=== PATIENT | male | born 1955 | race Caucasian/White ===

== ENCOUNTER 2017-07-14 04:10 | Emergency (ER) | payer OTHER ==
[~2017-07-14] VITALS: Ht 188 cm; Wt 122.5 kg
[~2017-07-14 04:10] MED LIST: ASPI81CH43; ATOR80TA; BECL80AE9; CYCL10TA3; GLIP10TA82; INSUINJ; INSULIN NPH; LORA-205; PERCOT; POTA10TA75; PROAIR; QUET100T38
[2017-07-14] MEDS ORDERED: SODIUM CHLORIDE 0.9% 1,000 ML IV ONE (04:26)
[2017-07-14 06:10] LABS: Basophils # (auto) 0 uL; Basophils % (auto) 0.4 % (0.0-2.0); Eosinophils # (auto) 0.2 uL; Eosinophils % (auto) 1.7 % (0.0-7.0); Hematocrit 38.4 % (41.0-53.0); Hemoglobin 12.6 g/dL (13.5-17.5); Lymphocytes # (auto) 1.8 uL; Lymphocytes % (auto) 19.7 % (10.0-50.0); Mean Corpuscular Hgb Conc. 32.8 g/dL (32.0-36.0); Mean Corpuscular Volume 76.3 fL (80.0-100.0); Mean Platelet Volume 7.8 fL (6.9-10.8); Monocytes # (auto) 0.8 uL; Monocytes % (auto) 8.7 % (0.0-12.0); Neutrophils # (auto) 6.3 uL; Neutrophils % (auto) 69.5 % (37.0-80.0); Nucleated Red Blood Cells % 0.1 %; Platelet Count (auto) 246 10^3/uL (140-450); Red Cell Distribution Width 19.2 % (11.8-14.3)
[2017-07-14 06:13] LABS: INR 1.02 (0.9-1.15); Partial Thromboplastin Time 28.2 sec (22.64-33.71); Prothrombin Time 11.1 sec (9.37-12.3)
[2017-07-14 06:26] LABS: Potassium 3.4 mmol/L (3.5-5.1)
[2017-07-14 06:32] LABS: Albumin 3.1 g/dL (3.4-5.0); BUN/Creatinine Ratio 19.8
[2017-07-14 06:36] LABS: Bilirubin, Total 0.3 mg/dL (0.2-1.0); Total Protein 7.3 g/dL (6.4-8.2)
[2017-07-14 08:41] LABS: Urine Bilirubin Negative (Negative); Urine Blood Negative /uL (Negative); Urine Color Yellow (Yellow); Urine Glucose Normal (Normal); Urine Ketone Negative (Negative); Urine Nitrite Negative (Negative); Urine RBC 1 /hpf (0 - 3); Urine Squamous Epithelial Cell FEW /hpf (<5); Urine Urobilinogen Normal (Negative); Urine pH 5.5 (5.0-8.0)
[2017-07-14] MEDS ORDERED: LEVOFLOXACIN 500MG 100 ML IV ONE (11:45)
[2017-07-14 14:23] VITALS: BP 126/74
== END 2017-07-14 14:33 | disposition short-term general hospital (02) ==
LOC: EDBD 04:10 → ER 04:13
DX: S40.011A Contusion of right shoulder, initial encounter (principal); N39.0 Urinary tract infection, site not specified; R55 Syncope and collapse; E66.01 Morbid (severe) obesity due to excess calories; S46.911A Strain of unspecified muscle, fascia and tendon at shoulder and upper arm level, right arm, initial encounter; E11.9 Type 2 diabetes mellitus without complications; E78.5 Hyperlipidemia, unspecified; J44.9 Chronic obstructive pulmonary disease, unspecified; F17.210 Nicotine dependence, cigarettes, uncomplicated; Z86.73 Personal history of transient ischemic attack (TIA), and cerebral infarction without residual deficits; Z95.1 Presence of aortocoronary bypass graft; Z79.899 Other long term (current) drug therapy; Z79.4 Long term (current) use of insulin; Z88.0 Allergy status to penicillin; Z88.6 Allergy status to analgesic agent; Z88.8 Allergy status to other drugs, medicaments and biological substances
CPT/HCPCS: 36415; 70450; 71010; 73030; 80053; 81001; 84484; 85025; 85610; 85730; 96361; 96365; 99285; J1956; 93005

== ENCOUNTER 2017-09-08 04:34 | Emergency (ER) | payer OTHER ==
[~2017-09-08] VITALS: Ht 182.9 cm; Wt 122.5 kg
[2017-09-08 05:54] LABS: Basophils # (auto) 0 uL; Eosinophils # (auto) 0.1 uL; Monocytes # (auto) 0.8 uL
[2017-09-08 05:56] LABS: Basophils % (auto) 0.5 % (0.0-2.0); Eosinophils % (auto) 0.7 % (0.0-7.0); Hematocrit 40.6 % (41.0-53.0); Hemoglobin 13.8 g/dL (13.5-17.5); Lymphocytes % (auto) 12.4 % (10.0-50.0); Mean Corpuscular Hemoglobin 26.6 pg (28.0-32.0); Mean Corpuscular Hgb Conc. 33.9 g/dL (32.0-36.0); Mean Corpuscular Volume 78.6 fL (80.0-100.0); Monocytes % (auto) 10.5 % (0.0-12.0); Neutrophils % (auto) 75.9 % (37.0-80.0); Platelet Count (auto) 236 10^3/uL (140-450); Red Blood Cells 5.17 10^6/uL (4.5-5.90); Red Cell Distribution Width 17.5 % (11.8-14.3); White Blood Cell 7.9 10^3/uL (4.4-10.8)
[2017-09-08 06:14] LABS: BUN/Creatinine Ratio 12.3; Bilirubin, Total 0.3 mg/dL (0.2-1.0); Calcium 8.5 mg/dL (8.5-10.1); Magnesium 2.1 mg/dL (1.6-2.6); Potassium 3.8 mmol/L (3.5-5.1); Total Protein 7.6 g/dL (6.4-8.2)
[2017-09-08] MEDS ORDERED: SODIUM CHLORIDE 0.9% 500 ML IVB ONE (06:45)
[2017-09-08 14:29] VITALS: BP 104/48
== END 2017-09-08 15:40 | disposition short-term general hospital (02) ==
LOC: EDBD 04:34 → ER 04:39
DX: R41.82 Altered mental status, unspecified (principal); F41.9 Anxiety disorder, unspecified; F32.9 Major depressive disorder, single episode, unspecified; I10 Essential (primary) hypertension; I25.10 Atherosclerotic heart disease of native coronary artery without angina pectoris; E11.9 Type 2 diabetes mellitus without complications; F17.210 Nicotine dependence, cigarettes, uncomplicated; J44.9 Chronic obstructive pulmonary disease, unspecified; K21.9 Gastro-esophageal reflux disease without esophagitis; I25.2 Old myocardial infarction; E78.00 Pure hypercholesterolemia, unspecified; Z95.1 Presence of aortocoronary bypass graft; Z86.73 Personal history of transient ischemic attack (TIA), and cerebral infarction without residual deficits; Z88.0 Allergy status to penicillin; Z88.5 Allergy status to narcotic agent; Z88.8 Allergy status to other drugs, medicaments and biological substances; Z79.4 Long term (current) use of insulin; Z79.891 Long term (current) use of opiate analgesic; Z79.82 Long term (current) use of aspirin; Z79.899 Other long term (current) drug therapy
CPT/HCPCS: 36415; 70450; 71045; 80053; 82962; 83605; 83735; 83880; 84484; 85025; 87040; 93005; 94761; 96360; 99285; J7040

== ENCOUNTER 2017-11-19 11:10 | Emergency (ER) | payer OTHER ==
[~2017-11-19] VITALS: Ht 182.9 cm; Wt 113.4 kg
[2017-11-19] MEDS ORDERED: KETOROLAC TROMETH 30 MG/ML 1ML VIAL IV ONE (11:30)
[2017-11-19 14:17] VITALS: BP 130/49
[2017-11-19] MEDS ORDERED: ASPirin 81 mg TAB PO ONE (14:45)
[2017-11-19 15:13] LABS: Basophils # (auto) 0 uL; Basophils % (auto) 0.7 % (0.0-2.0); Eosinophils # (auto) 0.1 uL; Eosinophils % (auto) 1.3 % (0.0-7.0); Hematocrit 40.5 % (41.0-53.0); Hemoglobin 13.5 g/dL (13.5-17.5); Lymphocytes # (auto) 1.1 uL; Lymphocytes % (auto) 14.9 % (10.0-50.0); Mean Corpuscular Hemoglobin 27.2 pg (28.0-32.0); Mean Corpuscular Hgb Conc. 33.3 g/dL (32.0-36.0); Mean Corpuscular Volume 81.4 fL (80.0-100.0); Monocytes # (auto) 0.6 uL; Neutrophils # (auto) 5.5 uL; Neutrophils % (auto) 75.1 % (37.0-80.0); Nucleated Red Blood Cells % 0.1 %; Platelet Count (auto) 305 10^3/uL (140-450); Red Blood Cells 4.98 10^6/uL (4.5-5.90); Red Cell Distribution Width 16.3 % (11.8-14.3); White Blood Cell 7.3 10^3/uL (4.4-10.8)
[2017-11-19 15:28] LABS: Alanine Aminotransferase 13 U/L (16-61); Albumin 3.1 g/dL (3.4-5.0); Anion Gap 8 (5-15); Aspartate Aminotransferase 14 U/L (15-37); Calcium 8.2 mg/dL (8.5-10.1); Carbon Dioxide 24 mmol/L (21-32); Chloride 107 mmol/L (98-107); Glucose 120 mg/dL (74-106); Magnesium 1.8 mg/dL (1.6-2.6); Potassium 3.8 mmol/L (3.5-5.1); Sodium 139 mmol/L (136-145)
[2017-11-19 15:33] LABS: Alkaline Phosphatase 137 U/L (45-117); BUN/Creatinine Ratio 8.3; Bilirubin, Total 0.8 mg/dL (0.2-1.0); Blood Urea Nitrogen 9 mg/dL (7-18); GFR African American 88 mL/min; GFR Non-African American 73 mL/min; Total Protein 7.8 g/dL (6.4-8.2)
== END 2017-11-19 17:47 | disposition home or self-care (01) ==
LOC: EDBD 11:10 → ER 11:10
DX: S20.212A Contusion of left front wall of thorax, initial encounter (principal); I10 Essential (primary) hypertension; K21.9 Gastro-esophageal reflux disease without esophagitis; I25.10 Atherosclerotic heart disease of native coronary artery without angina pectoris; E11.9 Type 2 diabetes mellitus without complications; E78.5 Hyperlipidemia, unspecified; J44.9 Chronic obstructive pulmonary disease, unspecified; Z79.82 Long term (current) use of aspirin; Z88.0 Allergy status to penicillin; Z79.4 Long term (current) use of insulin; Z86.73 Personal history of transient ischemic attack (TIA), and cerebral infarction without residual deficits; Z85.038 Personal history of other malignant neoplasm of large intestine; Z95.1 Presence of aortocoronary bypass graft; Z87.891 Personal history of nicotine dependence; W06.XXXA Fall from bed, initial encounter; Y93.89 Activity, other specified; Y92.098 Other place in other non-institutional residence as the place of occurrence of the external cause; Y99.8 Other external cause status
CPT/HCPCS: 36415; 71101; 80053; 83735; 84484; 85025; 93005; 94761; 96374; 99285; J1885

== ENCOUNTER 2017-11-24 19:17 | Inpatient (IN) | payer OTHER ==
[~2017-11-24] VITALS: Ht 188 cm; Wt 109.6 kg
[2017-11-24] MEDS ORDERED: ASPirin 81 mg TAB PO ONE (19:45)
[2017-11-24 20:10] LABS: Basophils # (auto) 0.1 uL; Basophils % (auto) 0.2 % (0.0-2.0); Eosinophils # (auto) 0 uL; Monocytes # (auto) 1.7 uL
[2017-11-24 20:14] LABS: Hematocrit 40.8 % (41.0-53.0); Hemoglobin 13.5 g/dL (13.5-17.5); Lymphocytes % (auto) 4.9 % (10.0-50.0); Mean Corpuscular Hgb Conc. 33.1 g/dL (32.0-36.0); Mean Corpuscular Volume 81.8 fL (80.0-100.0); Monocytes % (auto) 8.1 % (0.0-12.0); Neutrophils # (auto) 18.2 uL; Neutrophils % (auto) 86.8 % (37.0-80.0); Nucleated Red Blood Cells % 0.1 %; Platelet Count (auto) 335 10^3/uL (140-450); Red Blood Cells 4.99 10^6/uL (4.5-5.90); Red Cell Distribution Width 16.4 % (11.8-14.3); White Blood Cell 20.9 10^3/uL (4.4-10.8)
[2017-11-24 20:28] LABS: Albumin 2.3 g/dL (3.4-5.0); Calcium 8.7 mg/dL (8.5-10.1); Potassium 4.3 mmol/L (3.5-5.1)
[2017-11-24 20:31] LABS: BUN/Creatinine Ratio 24.6; Lactic Acid w/Reflex 2.9 mmol/L (0.4-2.0)
[2017-11-24 20:32] LABS: INR 1.28 (0.9-1.15); Partial Thromboplastin Time 33.8 sec (22.64-33.71)
[2017-11-24 20:33] LABS: CRP High Sensitivity 15.4 mg/dL (< 0.3); Magnesium 2.5 mg/dL (1.6-2.6)
[2017-11-24 20:35] LABS: Total Protein 7.8 g/dL (6.4-8.2)
[2017-11-24] MEDS ORDERED: AZITHROMYCIN 500MG/ 250ML 250 ML IV ONE (20:45)
[2017-11-24] MEDS ORDERED: SODIUM CHLORIDE 0.9% 1,000 ML IV ONE (20:45)
[2017-11-24] MEDS ORDERED: AZTREONAM 1GM INJ 1 GM in D5W 5% 50 ML IV ONE (20:45)
[2017-11-24] MEDS ORDERED: SODIUM CHL 0.9% IV ONE (21:15)
[2017-11-24] MEDS ORDERED: AZTREONAM IV ONE (21:15)
[2017-11-24] MEDS ORDERED: NITROGLYCERIN 0.2MG/HR TOPICAL PATCH TD ONE (22:15)
[2017-11-24 23:11] LABS: Urine Bacteria FEW /hpf (None Seen); Urine Blood 2+ /uL (Negative); Urine Hyaline Cast MOD /lpf (0 - 2); Urine Mucus FEW (None Seen); Urine WBC 7 /hpf (0 - 3); Urine WBC Clumps PRESENT /hpf (None Seen)
[2017-11-25] MEDS ORDERED: ONDANSETRON HCL 4 MG/2 ML VIAL IV PRN (01:30)
[2017-11-25] MEDS ORDERED: HYDROcodone-ACET 5/325MG TAB PO PRN (01:30)
[2017-11-25] MEDS ORDERED: NITROGLYCERIN 0.4 MG SL TAB SL PRN (01:30)
[2017-11-25] MEDS ORDERED: DEXTROSE (50%) 50ML SYRG IV PRN (01:30)
[2017-11-25] MEDS ORDERED: LORazepam 0.5 MG TAB PO PRN (01:30)
[2017-11-25] MEDS ORDERED: ACETAMINOPHEN 500 MG TAB PO PRN (01:30)
[2017-11-25 05:00] VITALS: BP 140/84
[2017-11-25] MEDS ORDERED: CLOP75TA28 PO (05:00)
[2017-11-25] MEDS ORDERED: FUROSEMIDE 40 MG/4 ML VIAL IV ONE (05:00)
[2017-11-25] MEDS ORDERED: VANCOMYCIN PER PHARMACY 0 MG IV SCH (05:00)
[2017-11-25] MEDS ORDERED: VANCOMYCIN 1GM/250ML 250 ML IV ONE ×2 (05:15→10:00)
[2017-11-25 06:00] LABS: Basophils # (auto) 0.1 uL; Basophils % (auto) 0.3 % (0.0-2.0); Eosinophils # (auto) 0 uL; Hematocrit 39.3 % (41.0-53.0); Hemoglobin 13.3 g/dL (13.5-17.5); Lymphocytes # (auto) 0.8 uL; Lymphocytes % (auto) 4.3 % (10.0-50.0); Mean Corpuscular Hemoglobin 27.4 pg (28.0-32.0); Mean Corpuscular Hgb Conc. 33.8 g/dL (32.0-36.0); Monocytes # (auto) 1.3 uL; Monocytes % (auto) 7.2 % (0.0-12.0); Neutrophils # (auto) 15.7 uL; Neutrophils % (auto) 88.2 % (37.0-80.0); Platelet Count (auto) 303 10^3/uL (140-450); Red Blood Cells 4.85 10^6/uL (4.5-5.90); Red Cell Distribution Width 16.6 % (11.8-14.3); White Blood Cell 17.8 10^3/uL (4.4-10.8)
[2017-11-25 06:26] LABS: BUN/Creatinine Ratio 27.3; Calcium 8.6 mg/dL (8.5-10.1)
[2017-11-25] MEDS: InsuLIN REG 1unit/0.01ml Soln (100units/ml) SC SCH ×5 (06:39→22:26)
[2017-11-25] MEDS: ACCU-CHEK COMFORT CURVE STRIP VI SCH ×4 (06:40→22:26)
[2017-11-25 08:26] VITALS: BP 148/74
[2017-11-25] MEDS: FUROSEMIDE 40 MG/4 ML VIAL IV SCH (10:20)
[2017-11-25] MEDS: ASPirin-EC 81 mg tab PO SCH (10:21)
[2017-11-25 13:00] VITALS: BP 110/44
[2017-11-25] MEDS ORDERED: LEVOFLOXACIN 500MG 100 ML IV ONE (15:00)
[2017-11-25] MEDS ORDERED: PIPERACILLIN-TAZOB 3.375GM 100 ML IV SCH (15:00)
[2017-11-25 17:00] VITALS: BP 115/82
[2017-11-25 20:00] VITALS: BP 121/62
[2017-11-25 21:48] VITALS: BP 121/60
[2017-11-25] MEDS: ATORVASTATIN 20 MG TAB PO SCH (22:25)
[2017-11-25] MEDS: VANCOMYCIN 1,500 MG in D5W 5% 250 ML IV SCH (22:27)
[2017-11-25] MEDS: ALBUTEROL SULF 2.5 MG/0.5ML(0.5%) NEB SOLN NEB PRN (23:32)
[2017-11-26 05:00] VITALS: BP 127/71
[2017-11-26 05:53] LABS: Basophils # (auto) 0 uL; Basophils % (auto) 0.2 % (0.0-2.0); Eosinophils # (auto) 0 uL; Hematocrit 42.6 % (41.0-53.0); Hemoglobin 14.3 g/dL (13.5-17.5); Lymphocytes % (auto) 5.2 % (10.0-50.0); Mean Corpuscular Hemoglobin 27.2 pg (28.0-32.0); Mean Corpuscular Hgb Conc. 33.5 g/dL (32.0-36.0); Mean Corpuscular Volume 81.2 fL (80.0-100.0); Monocytes # (auto) 1.5 uL; Monocytes % (auto) 8.3 % (0.0-12.0); Neutrophils # (auto) 15.9 uL; Neutrophils % (auto) 86.3 % (37.0-80.0); Platelet Count (auto) 312 10^3/uL (140-450); Red Blood Cells 5.24 10^6/uL (4.5-5.90); Red Cell Distribution Width 16.5 % (11.8-14.3); White Blood Cell 18.5 10^3/uL (4.4-10.8)
[2017-11-26 06:11] LABS: BUN/Creatinine Ratio 30.8; Calcium 8.6 mg/dL (8.5-10.1); Potassium 3.9 mmol/L (3.5-5.1)
[2017-11-26] MEDS: ACCU-CHEK COMFORT CURVE STRIP VI SCH ×4 (06:53→22:15)
[2017-11-26] MEDS: InsuLIN REG 1unit/0.01ml Soln (100units/ml) SC SCH ×4 (06:53→22:16)
[2017-11-26] MEDS ORDERED: SODIUM CHLORIDE 0.9 % NEB SOLN 3ML NEB ONE (08:58)
[2017-11-26] MEDS: ALBUTEROL SULF 2.5 MG/0.5ML(0.5%) NEB SOLN NEB PRN (09:00)
[2017-11-26 10:00] VITALS: BP 141/65
[2017-11-26] MEDS ORDERED: LEVOFLOXACIN 500MG 100 ML IV SCH (10:00)
[2017-11-26] MEDS: FUROSEMIDE 40 MG/4 ML VIAL IV SCH (10:19)
[2017-11-26] MEDS: ASPirin-EC 81 mg tab PO SCH (10:20)
[2017-11-26] MEDS: VANCOMYCIN 1,500 MG in D5W 5% 250 ML IV SCH ×2 (10:23→22:15)
[2017-11-26 12:51] VITALS: BP 129/73
[2017-11-26] MEDS ORDERED: LEVOFLOXACIN 250MG 50 ML IV ONE (14:00)
[2017-11-26 17:00] VITALS: BP 99/74
[2017-11-26 20:00] VITALS: BP 134/67
[2017-11-26 22:12] VITALS: BP 134/67
[2017-11-26] MEDS: ATORVASTATIN 20 MG TAB PO SCH (22:15)
[2017-11-27 04:57] VITALS: BP 111/61
[2017-11-27] MEDS: InsuLIN REG 1unit/0.01ml Soln (100units/ml) SC SCH ×4 (06:27→22:00)
[2017-11-27] MEDS: ACCU-CHEK COMFORT CURVE STRIP VI SCH ×4 (06:27→22:08)
[2017-11-27] MEDS: ALBUTEROL SULF 2.5 MG/0.5ML(0.5%) NEB SOLN NEB PRN (06:51)
[2017-11-27 09:00] VITALS: BP 132/66
[2017-11-27] MEDS: ASPirin-EC 81 mg tab PO SCH (09:32)
[2017-11-27] MEDS: FUROSEMIDE 40 MG/4 ML VIAL IV SCH (09:32)
[2017-11-27] MEDS: LEVOFLOXACIN 750MG 150 ML IV SCH (09:32)
[2017-11-27 10:11] LABS: Basophils # (auto) 0.1 uL; Basophils % (auto) 0.7 % (0.0-2.0); Eosinophils # (auto) 0 uL; Eosinophils % (auto) 0.1 % (0.0-7.0); Hematocrit 42.8 % (41.0-53.0); Hemoglobin 14.5 g/dL (13.5-17.5); Lymphocytes # (auto) 0.9 uL; Lymphocytes % (auto) 5.5 % (10.0-50.0); Mean Corpuscular Hemoglobin 27.3 pg (28.0-32.0); Mean Corpuscular Hgb Conc. 33.8 g/dL (32.0-36.0); Monocytes # (auto) 1.3 uL; Monocytes % (auto) 7.6 % (0.0-12.0); Neutrophils # (auto) 14.4 uL; Neutrophils % (auto) 86.1 % (37.0-80.0); Nucleated Red Blood Cells % 0.1 %; Platelet Count (auto) 304 10^3/uL (140-450); Red Blood Cells 5.29 10^6/uL (4.5-5.90); Red Cell Distribution Width 16.8 % (11.8-14.3); White Blood Cell 16.7 10^3/uL (4.4-10.8)
[2017-11-27 10:35] LABS: BUN/Creatinine Ratio 29.6; Calcium 8.9 mg/dL (8.5-10.1); Potassium 3.8 mmol/L (3.5-5.1)
[2017-11-27 13:00] VITALS: BP 116/61
[2017-11-27 17:00] VITALS: BP 123/68
[2017-11-27] MEDS: PRO-STAT 64 30ML PO SCH (18:00)
[2017-11-27 20:00] VITALS: BP 125/74
[2017-11-27 22:00] VITALS: BP 125/74
[2017-11-27] MEDS: VANCOMYCIN 1GM/250ML 250 ML IV SCH (22:09)
[2017-11-27] MEDS: ATORVASTATIN 20 MG TAB PO SCH (22:38)
[2017-11-28 05:40] VITALS: BP 135/70
[2017-11-28 06:31] LABS: BUN/Creatinine Ratio 29.5; Calcium 8.1 mg/dL (8.5-10.1); Potassium 3.6 mmol/L (3.5-5.1)
[2017-11-28] MEDS: InsuLIN REG 1unit/0.01ml Soln (100units/ml) SC SCH ×4 (06:48→21:40)
[2017-11-28] MEDS: ACCU-CHEK COMFORT CURVE STRIP VI SCH ×4 (06:48→21:41)
[2017-11-28 09:00] VITALS: BP 142/71
[2017-11-28] MEDS: LEVOFLOXACIN 750MG 150 ML IV SCH (09:31)
[2017-11-28] MEDS: ASPirin-EC 81 mg tab PO SCH (09:32)
[2017-11-28] MEDS: FUROSEMIDE 40 MG/4 ML VIAL IV SCH (09:32)
[2017-11-28] MEDS: VANCOMYCIN 1GM/250ML 250 ML IV SCH ×2 (10:07→21:40)
[2017-11-28] MEDS: PRO-STAT 64 30ML PO SCH ×2 (10:07→17:16)
[2017-11-28 13:00] VITALS: BP 119/70
[2017-11-28 17:00] VITALS: BP 146/66
[2017-11-28] MEDS: ATORVASTATIN 20 MG TAB PO SCH (21:41)
[2017-11-28 22:05] VITALS: BP 137/75
[2017-11-29] VITALS (7 sets, daily range): BP systolic 121–137; BP diastolic 68–76
[2017-11-29 06:08] LABS: Basophils # (auto) 0 uL; Basophils % (auto) 0.2 % (0.0-2.0); Eosinophils # (auto) 0 uL; Eosinophils % (auto) 0.1 % (0.0-7.0); Hemoglobin 13.7 g/dL (13.5-17.5); Lymphocytes # (auto) 0.6 uL; Monocytes # (auto) 0.9 uL
[2017-11-29 06:10] LABS: Hematocrit 41.9 % (41.0-53.0); Lymphocytes % (auto) 4.2 % (10.0-50.0); Mean Corpuscular Hemoglobin 26.4 pg (28.0-32.0); Mean Corpuscular Hgb Conc. 32.6 g/dL (32.0-36.0); Mean Corpuscular Volume 80.9 fL (80.0-100.0); Monocytes % (auto) 6.3 % (0.0-12.0); Neutrophils # (auto) 12.4 uL; Neutrophils % (auto) 89.2 % (37.0-80.0); Platelet Count (auto) 309 10^3/uL (140-450); Red Blood Cells 5.19 10^6/uL (4.5-5.90); Red Cell Distribution Width 16.6 % (11.8-14.3); White Blood Cell 13.9 10^3/uL (4.4-10.8)
[2017-11-29 06:22] LABS: Albumin 1.7 g/dL (3.4-5.0); BUN/Creatinine Ratio 29.7; Bilirubin, Total 0.5 mg/dL (0.2-1.0); Calcium 7.7 mg/dL (8.5-10.1); Potassium 3.8 mmol/L (3.5-5.1); Total Protein 7.3 g/dL (6.4-8.2)
[2017-11-29] MEDS: InsuLIN REG 1unit/0.01ml Soln (100units/ml) SC SCH ×4 (06:51→21:47)
[2017-11-29] MEDS: ACCU-CHEK COMFORT CURVE STRIP VI SCH ×4 (06:51→21:47)
[2017-11-29] MEDS: LEVOFLOXACIN 750MG 150 ML IV SCH (10:31)
[2017-11-29] MEDS: VANCOMYCIN 1GM/250ML 250 ML IV SCH ×2 (10:32→21:46)
[2017-11-29] MEDS: ASPirin-EC 81 mg tab PO SCH (10:32)
[2017-11-29] MEDS: FUROSEMIDE 40 MG/4 ML VIAL IV SCH (10:33)
[2017-11-29] MEDS: PRO-STAT 64 30ML PO SCH ×2 (10:39→18:07)
[2017-11-29] MEDS: ATORVASTATIN 20 MG TAB PO SCH (21:46)
[2017-11-30 05:07] VITALS: BP 114/74
[2017-11-30 06:02] LABS: Basophils # (auto) 0 uL; Basophils % (auto) 0.2 % (0.0-2.0); Eosinophils # (auto) 0 uL; Hemoglobin 13.9 g/dL (13.5-17.5); Monocytes # (auto) 0.7 uL; Neutrophils # (auto) 12.2 uL
[2017-11-30 06:06] LABS: Eosinophils % (auto) 0.3 % (0.0-7.0); Lymphocytes # (auto) 0.5 uL; Lymphocytes % (auto) 3.5 % (10.0-50.0); Mean Corpuscular Hemoglobin 26.7 pg (28.0-32.0); Mean Corpuscular Hgb Conc. 32.9 g/dL (32.0-36.0); Mean Corpuscular Volume 81.2 fL (80.0-100.0); Monocytes % (auto) 5.2 % (0.0-12.0); Neutrophils % (auto) 90.8 % (37.0-80.0); Platelet Count (auto) 307 10^3/uL (140-450); Red Blood Cells 5.29 10^6/uL (4.5-5.90); White Blood Cell 13.4 10^3/uL (4.4-10.8)
[2017-11-30 06:27] LABS: Albumin 1.6 g/dL (3.4-5.0); Bilirubin, Total 0.5 mg/dL (0.2-1.0); Calcium 7.7 mg/dL (8.5-10.1); Total Protein 7.3 g/dL (6.4-8.2)
[2017-11-30] MEDS: ACCU-CHEK COMFORT CURVE STRIP VI SCH ×2 (06:44→11:13)
[2017-11-30] MEDS: InsuLIN REG 1unit/0.01ml Soln (100units/ml) SC SCH ×2 (06:44→11:12)
[2017-11-30] MEDS: PRO-STAT 64 30ML PO SCH (08:42)
[2017-11-30 09:00] VITALS: BP 111/73
[2017-11-30] MEDS: ASPirin-EC 81 mg tab PO SCH (09:44)
[2017-11-30] MEDS: VANCOMYCIN 1GM/250ML 250 ML IV SCH (09:44)
[2017-11-30] MEDS: LEVOFLOXACIN 750MG 150 ML IV SCH (09:44)
[2017-11-30] MEDS: FUROSEMIDE 40 MG/4 ML VIAL IV SCH (09:45)
[2017-11-30 11:57] VITALS: BP 111/73
[2017-11-30 13:00] VITALS: BP 114/68
== END 2017-11-30 16:49 | disposition home or self-care (01) | DRG 871 ==
LOC: EDBD 19:17 → ER 19:17 → TELE 19:18 → TELE-WESTW 11-25 02:55
PROVIDERS: ADMIT Nurse Practitioner Family; ATTEND Family Medicine
DX: A41.01 Sepsis due to Methicillin susceptible Staphylococcus aureus (principal); I50.43 Acute on chronic combined systolic (congestive) and diastolic (congestive) heart failure; G93.41 Metabolic encephalopathy; I11.0 Hypertensive heart disease with heart failure; J18.1 Lobar pneumonia, unspecified organism; I24.9 Acute ischemic heart disease, unspecified; E11.40 Type 2 diabetes mellitus with diabetic neuropathy, unspecified; E87.1 Hypo-osmolality and hyponatremia; J44.0 Chronic obstructive pulmonary disease with (acute) lower respiratory infection; I25.110 Atherosclerotic heart disease of native coronary artery with unstable angina pectoris; N39.0 Urinary tract infection, site not specified; E78.00 Pure hypercholesterolemia, unspecified; E78.5 Hyperlipidemia, unspecified; K21.9 Gastro-esophageal reflux disease without esophagitis; F32.9 Major depressive disorder, single episode, unspecified; F41.9 Anxiety disorder, unspecified; N28.9 Disorder of kidney and ureter, unspecified; I25.2 Old myocardial infarction; Z79.82 Long term (current) use of aspirin; Z79.84 Long term (current) use of oral hypoglycemic drugs; Z79.899 Other long term (current) drug therapy; Z82.3 Family history of stroke; Z95.1 Presence of aortocoronary bypass graft; Z88.5 Allergy status to narcotic agent; Z88.0 Allergy status to penicillin; Z88.8 Allergy status to other drugs, medicaments and biological substances; Z79.4 Long term (current) use of insulin; Z85.89 Personal history of malignant neoplasm of other organs and systems; Z87.891 Personal history of nicotine dependence; Z86.73 Personal history of transient ischemic attack (TIA), and cerebral infarction without residual deficits; Z71.3 Dietary counseling and surveillance
CPT/HCPCS: 36415; 36600; 70450; 71045; 71046; 71250; 74176; 80048; 80053; 80202; 81001; 82140; 82805; 82962; 83036; 83605; 83735; 83880; 84484; 85025; 85610; 85730; 86141; 87040; 87045; 87077; 87081; 87086; 87186; 87804; 87899; 93005; 93306; 94640; 95819; 96365; 96368; 99291; J1815; J1956; J7060